=== PATIENT | female | born 1970 | race Caucasian/White ===

== ENCOUNTER 2021-09-28 19:39 | Inpatient (IN) | payer SELFPAY ==
[~2021-09-28] VITALS: Ht 167.6 cm; Wt 86.2 kg
[2021-09-28 20:03] LABS: BASOPHILS ABSOLUTE AUTO 0.03 K/mm3 (0.00-0.23); BASOPHILS PERCENT AUTO 0 % (0-2); EOSINOPHILS ABSOLUTE AUTO 0.26 K/mm3 (0.00-0.68); EOSINOPHILS PERCENT AUTO 3 % (0-6); Hematocrit 38.8 % (33.0-51.0); Hemoglobin 13.2 g/dL (11.5-16.0); IMMATURE GRAN ABSOLUTE AUTO 0.01 K/mm3 (0.00-0.10); IMMATURE GRAN PERCENT AUTO 0 % (0-1); LYMPHOCYTES ABSOLUTE AUTO 2.94 K/mm3 (0.84-5.20); LYMPHOCYTES PERCENT AUTO 36 % (21-46); MONOCYTES ABSOLUTE AUTO 0.52 K/mm3 (0.16-1.47); MONOCYTES PERCENT AUTO 6 % (4-13); Mean Corpuscular HGB 28.7 pg (26.0-34.0); Mean Corpuscular Volume 84 fL (80-100); Mean Platelet Volume 10.1 fL (9.1-12.4); NEUTROPHILS ABSOLUTE AUTO 4.39 K/mm3 (1.96-9.15); NEUTROPHILS PERCENT AUTO 54 % (41-73); Platelet Count 277 K/mm3 (150-400); RDW Standard Deviation 36.5 fL (35.1-46.3); White Blood Cell Count 8.15 K/mm3 (4.00-11.30)
[2021-09-28 20:24] LABS: Alanine Aminotransfer (ALT/SGP 20 U/L (12-78); Albumin, Blood 3.5 g/dL (3.4-5.0); Albumin/Globulin Ratio 0.9 (0.8-1.8); Alk Phos 96 U/L (50-136); Anion Gap 6 mmol/L (6-16); Aspartate Aminotrans (AST/SGOT 9 U/L (12-37); Bilirubin, Total 0.4 mg/dL (0.1-1.0); Blood Urea Nitrogen 14 mg/dL (8-24); Bun/Creatinine Ratio 19.9 (12.0-20.0); CO2, Blood 27 mmol/L (21-32); Calcium, Blood 8.8 mg/dL (8.5-10.1); Chloride, Blood 106 mmol/L (98-108); Globulin, Blood 4.1 g/dL (2.2-4.0); Glomerular Filtration Rate >60 (60-); Glucose, Blood 156 mg/dL (70-99); Potassium, Blood 3.6 mmol/L (3.5-5.5); Sodium, Blood 139 mmol/L (136-145); Total Protein, Blood 7.6 g/dL (6.4-8.2)
[2021-09-28 20:29] LABS: International Normalized Ratio 1.04; Prothrombin Time Results 10.9 Sec (9.7-11.5)
[2021-09-28 20:57] LABS: Influenza A, PCR NEGATIVE (NEGATIVE); Influenza B, PCR NEGATIVE (NEGATIVE); Resp Syncytial Virus, PCR NEGATIVE (NEGATIVE)
[2021-09-28 21:29] LABS: SARS-Cov-2 (COVID-19) PCR, MMC POSITIVE (NEGATIVE)
[2021-09-28] MEDS ORDERED: CARB200 PO (23:40)
[2021-09-28] MEDS ORDERED: ZOCOR20 MG PO (23:40)
[2021-09-28] MEDS ORDERED: Inderal40 MG PO (23:41)
[2021-09-28] MEDS ORDERED: CITA20 PO (23:41)
[2021-09-29] MEDS ORDERED: CARB200ER PO (00:08)
[2021-09-29] MEDS ORDERED: CARB200 PO (00:11)
--- NOTE | 2021-09-29 05:05 | NUR ---
SHIFT SUMMARY: PT AAOX4. VS WNL WITH NO SIGNS OF DISTRESS NOTED. REC'D FROM ER WITH GENERALERIZED WEAKNESS FROM CVA. PT IS COVID POSITIVE. IV IN RIGHT AC 20G. IV IN LEFT HAND 20G PATENT. ABULATES TO BATHROOM. SCD IN PLACE. MONITORING.
[2021-09-29 05:33] LABS: BASOPHILS ABSOLUTE AUTO 0.02 K/mm3 (0.00-0.23); BASOPHILS PERCENT AUTO 0 % (0-2); EOSINOPHILS ABSOLUTE AUTO 0.27 K/mm3 (0.00-0.68); EOSINOPHILS PERCENT AUTO 4 % (0-6); Hematocrit 37.9 % (33.0-51.0); Hemoglobin 12.7 g/dL (11.5-16.0); IMMATURE GRAN ABSOLUTE AUTO 0.02 K/mm3 (0.00-0.10); IMMATURE GRAN PERCENT AUTO 0 % (0-1); LYMPHOCYTES ABSOLUTE AUTO 2.41 K/mm3 (0.84-5.20); LYMPHOCYTES PERCENT AUTO 37 % (21-46); MONOCYTES ABSOLUTE AUTO 0.53 K/mm3 (0.16-1.47); MONOCYTES PERCENT AUTO 8 % (4-13); Mean Corpuscular HGB 28.7 pg (26.0-34.0); Mean Corpuscular HGB Conc 33.5 g/dL (31.5-36.5); Mean Corpuscular Volume 86 fL (80-100); Mean Platelet Volume 10.1 fL (9.1-12.4); NEUTROPHILS ABSOLUTE AUTO 3.29 K/mm3 (1.96-9.15); NEUTROPHILS PERCENT AUTO 50 % (41-73); Platelet Count 251 K/mm3 (150-400); RDW Coefficient Variation 12.1 % (11.7-14.2); RDW Standard Deviation 37.7 fL (35.1-46.3); Red Blood Cell Count 4.43 M/mm3 (3.80-5.20); White Blood Cell Count 6.54 K/mm3 (4.00-11.30)
[2021-09-29 05:57] LABS: Alanine Aminotransfer (ALT/SGP 17 U/L (12-78); Albumin, Blood 3.3 g/dL (3.4-5.0); Albumin/Globulin Ratio 0.9 (0.8-1.8); Alk Phos 88 U/L (50-136); Anion Gap 5 mmol/L (6-16); Aspartate Aminotrans (AST/SGOT 10 U/L (12-37); Bilirubin, Total 0.4 mg/dL (0.1-1.0); Blood Urea Nitrogen 9 mg/dL (8-24); Bun/Creatinine Ratio 13.8 (12.0-20.0); CO2, Blood 28 mmol/L (21-32); Calcium, Blood 8.7 mg/dL (8.5-10.1); Chloride, Blood 109 mmol/L (98-108); Creatinine, Blood 0.65 mg/dL (0.40-1.00); Globulin, Blood 3.8 g/dL (2.2-4.0); Glomerular Filtration Rate >60 (60-); Glucose, Blood 120 mg/dL (70-99); Potassium, Blood 3.9 mmol/L (3.5-5.5); Sodium, Blood 142 mmol/L (136-145); Total Protein, Blood 7.1 g/dL (6.4-8.2)
--- NOTE | 2021-09-29 10:48 | NUR ---
Pt. was alert and in bad, Responding to a Pt. request for information on advanced directives. Established rapport with pt. Pt. was unsettled by being new to our community. Provided a calming presence. At pt. request, reviewed the advanced directive material. Pt. displayed evidence of understanding the components, but will wait to go over information with her son. Pt. shared her machelle expereince, prayed with pt. Pt. verbalized gratitude for the visit.
--- NOTE | 2021-09-29 18:46 | NUR ---
SHIFT SUMMARY PT IS 1 ASSIST IN ROOM. SHE WILL ATTEMPT TO FOLLOW DIRECTIONS AT TIMES, SHE CAN VERBALLY EXPRESS THE ACTION SHE IS TRYING AND STATES SHE IS TRYING BUT UNABLE TO PERFORM THE TASKS. UNABLE TO SQUEEZE WITH EITHER HAND WHEN ASKED. SHE WAS ABLE TO PUSH AND PULL WITH HER FEET THIS AFTERNOON. SHE REPORTS FEELING STRONGER T/O THE SHIFT. VOIDING WELL, TOLERATING PO. FEEDING SELF. DENIES ANY PAIN. [id number]. CURRENTLY TALKING ON THE PHONE.
[2021-09-29 19:18] LABS: Source, Urine Voided
[2021-09-29 19:21] LABS: Bilirubin, Urine Neg (Neg); Blood, Urine Neg (Neg); Glucose Qualitative, Urine Neg (Neg); Ketones, Urine Neg (Neg); Leukocyte Esterase, Urine Neg (Neg); Nitrite, Urine Neg (Neg); Protein, Urine Neg (Neg); Urobilinogen, Urine NORM (Normal)
[2021-09-29 19:27] LABS: Appearance, Urine Clear (Clear); Color, Urine Pale Yellow (P-Yellow)
--- NOTE | 2021-09-30 03:36 | NUR ---
SHIFT SUMMARY NO ACUTE CHANGES TO REPORT THIS SHIFT. PT HAS RESTED MOST OF THE NIGHT. SHE IS AMBULATING WELL WITH 1 PA. COVID SYMPTOMS ARE MILD. MILD COUGH, SATS WNL ON RA. PT REPORTS SOME SOB. PLAN IS FOR MRI TODAY, FORM COMPLETED AND FAXED TO IMAGING. RESTFUL NIGHT FOR PT. BED IN LOWEST POSITION, CALL LIGHT WITHIN REACH.
--- NOTE | 2021-09-30 10:32 | NUR ---
TO MRI VAU W/C
--- NOTE | 2021-09-30 10:48 | NUR ---
SON AND DIL CALLED, [facility] [phone], AND OK TO GIVE THEM ANY MEDICAL INFO ABOUT HER.
[2021-09-30] MEDS ORDERED: ATOR40TA PO (14:47)
[2021-09-30] MEDS ORDERED: Aspir 8181 MG PO (14:48)
[2021-09-30] MEDS ORDERED: Amlodipine Bes2.5 MG PO (14:49)
[2021-09-30] MEDS ORDERED: CARBATROL300 M1 PO (14:50)
[2021-09-30] MEDS ORDERED: CLOP75 PO (14:53)
--- NOTE | 2021-09-30 14:53 | NUR ---
Pt, was alert and sat up on side of bed when I entered. Pt. informed of her expected discharge. Pt. was unsettled about staying in hospital when she could rest and recover at home. Normalized the pt. experience. Reinforced discussing the advanced directive material (given previous day) with her son. Pt. displayed evidence of understanding and intention to act. Prayed with pt. Pt. verbalized gratitude for spiritual care visit.
--- NOTE | 2021-09-30 16:20 | NUR ---
REVIEW D'C. AWARE CAN GET NEW WALKER AT [facility] OR USED AT [facility] OR NEW CHEAPER ONE AT [facility]. GIVEN NAME OF AYLIN AND NUMBER FOR F/U . ADVISED OF 2 NEW MEDS -NORVASC AND PLAVIX AND WHAT THEY ARE FOR. MEDS AT [facility]. ADVISED ABOUT HH. ADVISED IF SHE IS BABYSITTING( HAS 3 GRAN KIDS) TO DO IT AT FIRST WHEN RELATIVES ARE THERE TO SEE HOW SHE DOES. ANSWER ALL QUESTIONS. PATIENT. VERBALIZES UNDERSTANDING. AWAITING RIDE.
--- NOTE | 2021-09-30 17:45 | NUR ---
REVIEWED D'C WITH PATIENT DIL. 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 SHADI FROM [facility] THAT PATIENT IS BUYING GIVEN TO DIL. AWARE NEEDS TO MAKE F/U APPT. AYLIN. CAN RETURN TO E.R. IF NEEDED. ANSWER ALL QUESTIONS. VERBALISES UNDERSTANDING
== END 2021-09-30 17:11 | disposition home or self-care (01) | DRG 64 ==
LOC: ER 19:39 → SURS 19:40
PROVIDERS: Emergency Medicine; Internal Medicine; ADMIT Internal Medicine
DX: I63.81 Other cerebral infarction due to occlusion or stenosis of small artery (principal); U07.1 COVID-19; G93.41 Metabolic encephalopathy; I10 Essential (primary) hypertension; Z23 Encounter for immunization; G40.909 Epilepsy, unspecified, not intractable, without status epilepticus; E78.5 Hyperlipidemia, unspecified; Z79.899 Other long term (current) drug therapy
CPT/HCPCS: 0241U; 36415; 70450; 70496; 70498; 70551; 71045; 80053; 81003; 83880; 84484; 85025; 85610; 85730; 90686; 93005; 93010; 96372; 97110; 97112; 97161; 97166; 97530; 97535; 99285-25; A9270; G0008; G0378; J1650; J7030; Q3014; Q9967

== ENCOUNTER 2021-10-08 14:54 | Emergency (ER) | payer OTHER ==
[~2021-10-08] VITALS: Ht 162.6 cm; Wt 83.9 kg
[~2021-10-08 14:54] MED LIST: ATOR40TA PO; Amlodipine Bes2.5 MG PO; Aspir 8181 MG PO; CARB200 PO; CARB200ER PO; CARBATROL300 M1 PO; CITA20 PO; CLOP75 PO; Inderal40 MG PO; ZOCOR20 MG PO
[2021-10-08 15:23] LABS: BASOPHILS ABSOLUTE AUTO 0.02 K/mm3 (0.00-0.23); BASOPHILS PERCENT AUTO 0 % (0-2); EOSINOPHILS ABSOLUTE AUTO 0.18 K/mm3 (0.00-0.68); EOSINOPHILS PERCENT AUTO 3 % (0-6); Hematocrit 38.6 % (33.0-51.0); Hemoglobin 13.1 g/dL (11.5-16.0); IMMATURE GRAN ABSOLUTE AUTO 0.01 K/mm3 (0.00-0.10); IMMATURE GRAN PERCENT AUTO 0 % (0-1); LYMPHOCYTES PERCENT AUTO 32 % (21-46); MONOCYTES ABSOLUTE AUTO 0.58 K/mm3 (0.16-1.47); MONOCYTES PERCENT AUTO 9 % (4-13); Mean Corpuscular HGB 28.9 pg (26.0-34.0); Mean Corpuscular HGB Conc 33.9 g/dL (31.5-36.5); Mean Corpuscular Volume 85 fL (80-100); Mean Platelet Volume 10.3 fL (9.1-12.4); NEUTROPHILS ABSOLUTE AUTO 3.76 K/mm3 (1.96-9.15); NEUTROPHILS PERCENT AUTO 57 % (41-73); Platelet Count 257 K/mm3 (150-400); RDW Coefficient Variation 12.2 % (11.7-14.2); RDW Standard Deviation 37.8 fL (35.1-46.3); Red Blood Cell Count 4.53 M/mm3 (3.80-5.20); White Blood Cell Count 6.65 K/mm3 (4.00-11.30)
[2021-10-08 15:41] LABS: Alanine Aminotransfer (ALT/SGP 21 U/L (12-78); Albumin, Blood 3.6 g/dL (3.4-5.0); Albumin/Globulin Ratio 0.9 (0.8-1.8); Alk Phos 101 U/L (50-136); Anion Gap 7 mmol/L (6-16); Aspartate Aminotrans (AST/SGOT 12 U/L (12-37); Bilirubin, Total 0.2 mg/dL (0.1-1.0); Blood Urea Nitrogen 11 mg/dL (8-24); Bun/Creatinine Ratio 16.5 (12.0-20.0); CO2, Blood 27 mmol/L (21-32); Calcium, Blood 8.7 mg/dL (8.5-10.1); Chloride, Blood 106 mmol/L (98-108); Creatinine, Blood 0.67 mg/dL (0.40-1.00); Ethanol (Alcohol), Blood, Med <3 mg/dL; Glomerular Filtration Rate >60 (60-); Glucose, Blood 128 mg/dL (70-99); Potassium, Blood 3.8 mmol/L (3.5-5.5); Sodium, Blood 140 mmol/L (136-145); Total Protein, Blood 7.6 g/dL (6.4-8.2)
[2021-10-08 15:49] LABS: Source, Urine Voided
[2021-10-08 15:55] LABS: Bilirubin, Urine Neg (Neg); Blood, Urine Neg (Neg); Glucose Qualitative, Urine Neg (Neg); Ketones, Urine Neg (Neg); Leukocyte Esterase, Urine Neg (Neg); Nitrite, Urine Neg (Neg); Protein, Urine Neg (Neg); Urobilinogen, Urine NORM (Normal); pH, Urine 6.5 (5.0-8.0)
[2021-10-08 16:09] LABS: Appearance, Urine Clear (Clear); Color, Urine Pale Yellow (P-Yellow)
== END 2021-10-08 17:25 | disposition home or self-care (01) ==
LOC: ER 14:54
PROVIDERS: Emergency Medicine
DX: R53.1 Weakness (principal); Z79.899 Other long term (current) drug therapy; I10 Essential (primary) hypertension; E78.5 Hyperlipidemia, unspecified
CPT/HCPCS: 36415; 70450; 71045; 80053; 81003; 82947; 84484; 85025; 93005; 93010; 99285-25; G0480

== ENCOUNTER → 2021-10-14 | Outpatient (CLI) | payer OTHER ==
[2021-10-14 15:32] LABS: Very Low Density Lipoprot Chol 22 mg/dL (6-32)
[2021-10-14 15:47] LABS: CHOL/HDL RATIO 2.4; Cholesterol 167 mg/dL (50-200); HDL Cholesterol 70 mg/dL (>39); LDL/HDL RATIO 1.1; Low Density Lipoprotein Chol 75 mg/dL (0-110); Triglycerides 110 mg/dL (30-160)
== END | disposition home or self-care (01) ==
LOC: LAB SHORT 13:45
PROVIDERS: Internal Medicine
DX: I63.9 Cerebral infarction, unspecified (principal)
CPT/HCPCS: 80061